=== PATIENT | female | born 2000 | race Caucasian/White ===

== ENCOUNTER 2020-02-07 21:07 | Emergency (ER) | payer OTHER ==
[~2020-02-07] VITALS: Ht 162.6 cm; Wt 99.8 kg
[~2020-02-07 21:07] MED LIST: AMOX500 PO; AZIT200SU PO; CODACE30 PO; ONDA4ODT MM; PROM25 PO; Permethrin60 GM TP; Prednisone20 MG PO; RXCODACET PO; Zofran4 MG PO
== END 2020-02-07 23:25 | disposition home or self-care (01) ==
LOC: ER 21:07
DX: S91.112A Laceration without foreign body of left great toe without damage to nail, initial encounter (principal); W26.8XXA Contact with other sharp object(s), not elsewhere classified, initial encounter
CPT/HCPCS: 12001; 73620; 99283-25

== ENCOUNTER 2021-04-25 20:10 | Emergency (ER) | payer OTHER ==
[~2021-04-25] VITALS: Ht 165.1 cm; Wt 97.5 kg
== END 2021-04-25 21:08 | disposition home or self-care (01) ==
LOC: ER 20:10
DX: S50.11XA Contusion of right forearm, initial encounter (principal); X58.XXXA Exposure to other specified factors, initial encounter; Y93.K9 Activity, other involving animal care
CPT/HCPCS: 73090; 99283-25; A9270

== ENCOUNTER 2024-06-05 22:52 | Emergency (ER) | payer OTHER ==
[~2024-06-05] VITALS: Ht 162.6 cm; Wt 96.2 kg
[2024-06-06 04:00] VITALS: BP 133/83
== END 2024-06-06 05:01 | disposition home or self-care (01) ==
LOC: ER 22:52
DX: S63.501A Unspecified sprain of right wrist, initial encounter (principal); W01.0XXA Fall on same level from slipping, tripping and stumbling without subsequent striking against object, initial encounter
CPT/HCPCS: 29125; 73090; 73110; 99283-25

== ENCOUNTER 2024-10-20 15:39 | Emergency (ER) | payer BC, OTHER ==
[~2024-10-20] VITALS: Ht 162.6 cm; Wt 113.4 kg
[2024-10-20] MEDS ORDERED: HYDROmorphone HCl/Pf 1MG SYR IV ONE (15:40)
[2024-10-20] MEDS ORDERED: Ketorolac Tromethamine 30mg Vial IV ONE (15:45)
[2024-10-20] MEDS ORDERED: Norco 5-325 Ta1 EACH PO (16:25)
[2024-10-20 16:33] VITALS: BP 110/90
[2024-10-20] MEDS ORDERED: CRUTCH2 XX (17:01)
== END 2024-10-20 17:07 | disposition home or self-care (01) ==
LOC: ER 15:39
DX: S82.831A Other fracture of upper and lower end of right fibula, initial encounter for closed fracture (principal); W18.30XA Fall on same level, unspecified, initial encounter
CPT/HCPCS: 29515; 73610; 96374-59; 96375-59; 99283-25; J1171; J1885

== ENCOUNTER 2024-10-29 12:11 | Day surgery (SDC) | payer BC, OTHER ==
[2024-10-29] VITALS (10 sets, daily range): BP systolic 100–153; BP diastolic 48–95
[~2024-10-29] VITALS: Ht 162.6 cm; Wt 129.2 kg
[~2024-10-29 12:11] MED LIST changes: +CRUTCH2 XX; +Norco 5-325 Ta1 EACH PO
[2024-10-29] MEDS ORDERED: Lactated Ringer's 1,000 ML IV SCH (13:15)
[2024-10-29] MEDS ORDERED: CeFAZolin Sodium 2,000 MG in NS 100 ML IV SCH (13:15)
[2024-10-29] MEDS ORDERED: CeFAZolin Sodium 3,000 MG in NS 100 ML IV SCH (13:25)
[2024-10-29] MEDS ORDERED: Midazolam HCL 1 MG/ML 5MLVIAL ONE (13:30)
[2024-10-29] MEDS ORDERED: FentaNYL Citrate 50 MCG/ML 2 ML Injection ONE ×3 (13:31→16:12)
[2024-10-29] MEDS ORDERED: propofoL 20 ML IV ONE ×2 (13:33→14:10)
[2024-10-29] MEDS ORDERED: CeFAZolin Sodium 3,000 MG VIAL ONE (13:33)
[2024-10-29] MEDS ORDERED: Bupivacaine 0.5% W/EPI 1:200000 SDV 30 ML Vial ONE (13:39)
--- NOTE | 2024-10-29 13:41 | NUR ---
PT TO UNIT VIA W/C WITH SPLINT ON LEG. ABLE TO STAND ON SCALE WITH MINIMAL ASSISTANCE. ABLE TO USE RESTROOM INDEPENDENTLY. Pre-Op teaching done. Pt verbalizes understanding. Patient States Post-Procedure ride home has been arranged WITH MOTHER. History, Chart, Medications and Allergies reviewed before start of procedure. MULTIPLE IV ATTEMPTS BY MULTIPLE STAFF MEMBERS INCLUDING ANESTHESIA PROVIDER. PT TOW. FAMILY BROUGHT TO SEE PT BEFORE TAKING BACK TO OPERATING ROOM.
[2024-10-29] MEDS ORDERED: Ondansetron HCl 2 MG / ML 2ML Vial ONE (14:29)
[2024-10-29] MEDS ORDERED: Dexamethasone Sod Phos 10 MG/ML 1ML VIAL ONE (14:29)
[2024-10-29] MEDS ORDERED: FentaNYL Citrate 50 MCG/ML 2 ML Injection IV PRN ×2 (14:40)
[2024-10-29] MEDS ORDERED: Ondansetron HCl 2 MG / ML 2ML Vial IV PRN (14:40)
[2024-10-29] MEDS ORDERED: HYDROmorphone HCl 0.5 MG/0.5 ML SYR IV PRN (14:40)
[2024-10-29] MEDS ORDERED: Labetalol HCL 5 MG/ML 4ML Injection (Single Dose) IV PRN (14:40)
[2024-10-29] MEDS ORDERED: Ketorolac Tromethamine 30mg Vial ONE (15:06)
[2024-10-29] MEDS ORDERED: Bupivacaine 0.5% HCl 5 MG/ML 30MLVIAL ONE (16:26)
[2024-10-29] MEDS ORDERED: Bupivacaine HCl 0.25% 30 ML Injection ONE (16:26)
[2024-10-29] MEDS ORDERED: HYDROmorphone HCl 0.5 MG/0.5 ML SYR ONE (16:53)
[2024-10-29] MEDS ORDERED: HYDROmorphone HCl 0.5 MG/0.5 ML SYR IV ONE (17:00)
[2024-10-29] MEDS ORDERED: OxyCODONE HCL 10 MG TABCR PO ONE (17:00)
--- NOTE | 2024-10-29 17:34 | NUR ---
LATE ENTRY FOR 1605 ANESTHESIA AT BEDSIDE TO PERFORM NERVE BLOCK AT 1540. PT PLACED ON HER LEFT SIDE WITH SUPPORT AND PILLOWS UNDER RIGHT LEG. PT TEARFUL AND REPORTING PAIN OF 8/10 IN RIGHT ANKLE. DESCRIBES PAIN "PRESSURE AND SHARP". VITAL SIGNS REMAIN STABLE THROUGHOUT. 50MCG FENTANYL IV FOR PAIN DURING BLOCK AT 1545 WITH ANESTHESIA APPROVAL. SEE ANESTHESIA BLOCK NOTE FOR BLOCK DETAILS. WHEN BLOCK WAS COMPLETED AT 1601 PT HELPED BACK TO SUPINE POSITION WITH HEAD OF BED ELEVATED. PILLOWS PLACED UNDER RIGHT LEG. PT REMAINS TEARFUL WITH PAIN RATING OF 8/10 IN HER RIGHT ANKLE. PT ABLE TO FEEL TOUCH ON TOES AND REPORTS NO NUMBNESS OR TINGLING. SHE IS ABLE TO WIGGLE HER TOES. DR JACOBO BENSON.
--- NOTE | 2024-10-29 17:50 | NUR ---
LATE ENTRY FOR 1635 WHEN TRANSFERRING VITAL SIGNS FROM [facility], THE MONITOR TRANSFERRED ALL VITALS EXCEPT BLOOD PRESSURES. VITAL SIGN TRENDS PRINTED MANUALLY AND PLACED IN PT'S CHART WITH PT STICKER TO BE SCANNED INTO MEDICAL RECORD.
--- NOTE | 2024-10-29 17:53 | NUR ---
PT REPORTS PAIN TOLERABLE AT 6/10 AND IS REQUESTING TO GO HOME. VITALS REMAIN STABLE. NO NAUSEA REPORTED. SPLINT AND DIANNA WRAP REMAIN CLEAN DRY AND INTACT. TOES REMAIN PINK WITH GOOD CAPILLARY REFILL. PT'S PERSONAL WHEELCHAIR RETURNED TO HER. ABLE TO TRANSFER WITH MINIMAL ASSISTANCE TO W/C. Discharge instructions reviewed with patient. Patient verbalizes understanding. Copy given to patient to take home. BOYFRIEND AND MOTHER PRESENT FOR INSTRUCTIONS. ALL DENY ANY FURTHER QUESTIONS AT THIS TIME. ICE PACK GIVEN TO PT TO TAKE HOME. PAIN CONTROL HANDOUT PROVIDED TO PT. PT TAKEN TO MOMS VEHICLE VIA W/C.
--- NOTE | 2024-10-29 18:01 | NUR ---
LATE ENTRY FOR 1709 DR METCALF CALLED AND NOTIFIED OF PT BEING TEARFUL WITH PAIN LEVEL OF 8/10 IN HER RIGHT ANKLE. VERBAL ORDERS GIVEN FOR ORAL AND IV PAIN MEDS. SEE EMAR FOR PAIN MEDS GIVEN. PT CONTINUES TO REPORT NO NAUSEA AT THIS TIME. PT ABLE TO TOLERATE WATER AND VANILLA PUDDING WELL.
== END 2024-10-29 23:00 | disposition home or self-care (01) ==
LOC: ORSCMMR 12:11 → ORD 13:30 → ORSCMMR 23:00
DX: S82.841A Displaced bimalleolar fracture of right lower leg, initial encounter for closed fracture (principal); E66.01 Morbid (severe) obesity due to excess calories; Z68.42 Body mass index [BMI] 45.0-49.9, adult
CPT/HCPCS: A9270; C1713; J0690; J1100; J1171; J1885; J2250; J2405; J2704; J3010; J7120

== ENCOUNTER 2024-12-14 09:07 | Day surgery (SDC) | payer BC, OTHER ==
[~2024-12-14] VITALS: Ht 162.6 cm; Wt 130.9 kg
[2024-12-14] VITALS (10 sets, daily range): BP systolic 101–131; BP diastolic 55–89
[~2024-12-14 09:07] MED LIST changes: +IBUP200 PO; +Lactated Ringer's 1,000 ML IV SCH; +SULFAMETHOXAZO1 EAC1 PO
[2024-12-14] MEDS ORDERED: CeFAZolin Sodium 3,000 MG in NS 100 ML IV SCH (09:40)
[2024-12-14] MEDS ORDERED: CeFAZolin Sodium 3,000 MG VIAL ONE (09:55)
--- NOTE | 2024-12-14 10:20 | NUR ---
Patient confirms NPO status and agrees with scheduled surgery. History, Chart, Medications and Allergies reviewed before start of procedure. Patient States Post-Procedure ride home has been arranged. Pre-Op teaching done. Pt verbalizes understanding. Pt presented to Day Surgery in personal wheelchair. Patient label placed on chair and stored in Endo 2. Lungs clear T/O to Auscultation.
[2024-12-14] MEDS ORDERED: propofoL 20 ML IV ONE (10:47)
[2024-12-14] MEDS ORDERED: FentaNYL Citrate 50 MCG/ML 2 ML Injection ONE (10:56)
[2024-12-14] MEDS ORDERED: HYDROmorphone HCl/Pf 1MG SYR ONE ×2 (11:01→11:47)
[2024-12-14] MEDS ORDERED: Ondansetron HCl 2 MG / ML 2ML Vial ONE (11:10)
[2024-12-14] MEDS ORDERED: Dexamethasone Sod Phos 10 MG/ML 1ML VIAL ONE (11:10)
[2024-12-14] MEDS ORDERED: Morphine Sulfate 4 MG/1 ML Injection IV PRN (11:40)
[2024-12-14] MEDS ORDERED: HYDROmorphone HCl/Pf 1MG SYR IV PRN (11:40)
[2024-12-14] MEDS ORDERED: FentaNYL Citrate 50 MCG/ML 2 ML Injection IV PRN (11:45)
[2024-12-14] MEDS ORDERED: Albuterol 2.5 MG/3 ML VIAL INH PRN (11:45)
[2024-12-14] MEDS ORDERED: Ondansetron HCl 2 MG / ML 2ML Vial IV PRN (11:45)
[2024-12-14] MEDS ORDERED: Ketorolac Tromethamine 30mg Vial IV PRN (11:50)
[2024-12-14] MEDS ORDERED: OxyCODONE HCL 5 MG TAB PO PRN (12:00)
--- NOTE | 2024-12-14 13:09 | NUR ---
DISCHARGE NOTE PT A&OX4, BREATHING RA, VSS. MEDICATED FOR PAIN PER MD ORDERS, PT STATES PAIN IS "MUCH BETTER." NO OTHER COMPLAINTS. R LEG ELEVATED C ICE PACK. PICCO DRESSING INTACT AND GREEN LIGHT IS ON. PT TOLERTING PO INTAKE. SISTER AT BEDSIDE, GLASSES ON PT. Discharge instructions reviewed with patient. Patient verbalizes understanding. Copy given to patient to take home. Dressing to procedure site clean, dry, intact with no visible drainage, swelling, erythema or bruising noted.PT ABLE TO WIGGLE AND FEEL TOES- BRISK CAP REFILL AND FOOT IS PWD. SWELLING TO R FOOT NOTED BUT REMAINS UNCHAGED DURING DSU STAY. Discharged via wheelchair to private car for ride home.
== END 2024-12-14 13:26 | disposition home or self-care (01) ==
LOC: ORD 09:07 → ORSCMMR 09:07 → ORD 09:45 → ORSCMMR 09:45 → ORD 13:26
PROVIDERS: Orthopaedic Surgery
PROC: 0QBJ0ZZ Excision of Right Fibula, Open Approach (ICD-10-PCS; principal; 2024-12-14 11:00)
DX: S82.841G Displaced bimalleolar fracture of right lower leg, subsequent encounter for closed fracture with delayed healing (principal); B95.4 Other streptococcus as the cause of diseases classified elsewhere; T81.31XA Disruption of external operation (surgical) wound, not elsewhere classified, initial encounter; E66.01 Morbid (severe) obesity due to excess calories; Z68.42 Body mass index [BMI] 45.0-49.9, adult
CPT/HCPCS: 87071; 87075; 87076; 87185; 87205; A9270; J0690; J1100; J1171; J1885; J2405; J2704; J3010; J7120

== ENCOUNTER 2025-01-30 06:04 | Day surgery (SDC) | payer BC, OTHER ==
[~2025-01-30] VITALS: Ht 162.6 cm; Wt 125.7 kg
[~2025-01-30 06:04] MED LIST changes: +Lactated Ringer's 1,000 ML IV ONE; -Lactated Ringer's 1,000 ML IV SCH
[2025-01-30] MEDS ORDERED: CeFAZolin Sodium 3,000 MG VIAL ONE (06:23)
[2025-01-30] MEDS ORDERED: Lactated Ringer's 1,000 ML IV ONE ×3 (07:00→09:50)
[2025-01-30] MEDS ORDERED: Bupivacaine 0.5% W/EPI 1:200000 SDV 30 ML Vial ONE (07:00)
[2025-01-30] MEDS ORDERED: ACET500 PO (07:01)
[2025-01-30] MEDS ORDERED: propofoL 20 ML IV ONE (07:16)
[2025-01-30] MEDS ORDERED: FentaNYL Citrate 50 MCG/ML 2 ML Injection ONE ×3 (07:16→09:17)
[2025-01-30] MEDS ORDERED: Midazolam HCl 1MG / ML 2ML Vial ONE (07:16)
[2025-01-30] MEDS ORDERED: Dexamethasone Sod Phos 10 MG/ML 1ML VIAL ONE (07:28)
[2025-01-30] MEDS ORDERED: Ondansetron HCl 2 MG / ML 2ML Vial ONE ×2 (07:28→08:43)
[2025-01-30] MEDS ORDERED: Ketorolac Tromethamine 30mg Vial ONE (07:29)
[2025-01-30] MEDS ORDERED: Rocuronium Bromide 10 MG/ML 5ML Injection IV ONE (07:31)
[2025-01-30] MEDS ORDERED: [UNRECOGNIZED DRUG - OTHER] INJ ONE (07:56)
[2025-01-30] MEDS ORDERED: Sugammadex Sodium 200 MG/2ML SDV (100 MG/ML) ONE (08:18)
[2025-01-30] MEDS ORDERED: Metoclopramide HCl 5MG / ML 2ML Vial ONE (09:02)
--- NOTE | 2025-01-30 09:11 | NUR ---
01/30/25 0911 Kee Orozco PT EXPERIENCING NAUSEA/VOMITING. MEDICATED WITH ZOFRAN 4 MG IV. PT WAS STILL EXPERIENCING NAUSEA/VOMITING AND MEDICATED WITH REGLAN 10 MG IV. WILL CONTINUE TO MONITOR.
[2025-01-30 09:31] VITALS: BP 112/58
== END 2025-01-30 09:56 | disposition home or self-care (01) ==
LOC: ORSCSDS 06:04
PROVIDERS: Orthopaedic Surgery
PROC: 0QP104Z Removal of Internal Fixation Device from Sacrum, Open Approach (ICD-10-PCS; principal; 2025-01-30 07:30)
PROC: 0JBQ0ZZ Excision of Right Foot Subcutaneous Tissue and Fascia, Open Approach (ICD-10-PCS; principal; 2025-01-30 07:30)
PROC: 0QBJ0ZZ Excision of Right Fibula, Open Approach (ICD-10-PCS; principal; 2025-01-30 07:30)
DX: T84.9XXA Unspecified complication of internal orthopedic prosthetic device, implant and graft, initial encounter (principal); S82.831D Other fracture of upper and lower end of right fibula, subsequent encounter for closed fracture with routine healing; E66.01 Morbid (severe) obesity due to excess calories; Z68.42 Body mass index [BMI] 45.0-49.9, adult
CPT/HCPCS: 87071; 87075; 87077; 87186; 87205; J0690; J1100; J1885; J2250; J2405; J2704; J2765; J3010; J7120

== ENCOUNTER 2025-05-03 01:38 | Day surgery (SDC) | payer BC, OTHER ==
[~2025-05-03 01:38] MED LIST changes: +ACET500 PO; -Lactated Ringer's 1,000 ML IV ONE
[2025-05-03] MEDS ORDERED: Lidocaine HCl 4% Cream 5 GM ONE (08:03)
== END 2025-05-03 23:00 | disposition home or self-care (01) ==
LOC: WOUND 01:38
DX: T81.31XA Disruption of external operation (surgical) wound, not elsewhere classified, initial encounter (principal)
CPT/HCPCS: A6213; A9270; G0463

== ENCOUNTER 2025-05-07 02:26 | Day surgery (SDC) | payer BC, OTHER ==
[2025-05-07] MEDS ORDERED: Lidocaine HCl 4% Cream 5 GM ONE (07:54)
== END 2025-05-07 23:59 | disposition home or self-care (01) ==
LOC: WOUND 02:26
DX: T81.31XD Disruption of external operation (surgical) wound, not elsewhere classified, subsequent encounter (principal); L97.812 Non-pressure chronic ulcer of other part of right lower leg with fat layer exposed
CPT/HCPCS: A6213; A9270; G0463

== ENCOUNTER 2025-05-21 02:13 | Day surgery (SDC) | payer BC, OTHER ==
[2025-05-21] MEDS ORDERED: Lidocaine HCl 4% Cream 5 GM ONE (07:52)
== END 2025-05-21 23:00 | disposition home or self-care (01) ==
LOC: WOUND 02:13
DX: T81.31XD Disruption of external operation (surgical) wound, not elsewhere classified, subsequent encounter (principal); L97.312 Non-pressure chronic ulcer of right ankle with fat layer exposed
CPT/HCPCS: A6213; A9270; G0463

== ENCOUNTER 2025-05-31 10:48 | Day surgery (SDC) | payer BC, OTHER ==
[~2025-05-31 10:48] MED LIST changes: +Lidocaine HCl 4% Cream 5 GM ONE
== END 2025-05-31 23:00 | disposition home or self-care (01) ==
LOC: WOUND 10:48
DX: T81.31XD Disruption of external operation (surgical) wound, not elsewhere classified, subsequent encounter (principal); L97.312 Non-pressure chronic ulcer of right ankle with fat layer exposed
CPT/HCPCS: A6213; A9270; G0463

== ENCOUNTER 2025-06-21 00:04 | Day surgery (SDC) | payer BC, OTHER ==
[~2025-06-21 00:04] MED LIST changes: -Lidocaine HCl 4% Cream 5 GM ONE
[2025-06-21] MEDS ORDERED: Lidocaine HCl 4% Cream 5 GM ONE (08:30)
== END 2025-06-21 23:00 | disposition home or self-care (01) ==
LOC: WOUND 00:04
DX: T81.31XD Disruption of external operation (surgical) wound, not elsewhere classified, subsequent encounter (principal); L97.312 Non-pressure chronic ulcer of right ankle with fat layer exposed
CPT/HCPCS: A6213; A9270

== ENCOUNTER 2025-06-27 02:32 | Day surgery (SDC) | payer BC, OTHER ==
[2025-06-27] MEDS ORDERED: Lidocaine HCl 4% Cream 5 GM ONE (08:19)
== END 2025-06-27 23:00 | disposition home or self-care (01) ==
LOC: WOUND 02:32
DX: T81.31XA Disruption of external operation (surgical) wound, not elsewhere classified, initial encounter (principal); L97.312 Non-pressure chronic ulcer of right ankle with fat layer exposed
CPT/HCPCS: A6213; A9270

== ENCOUNTER 2025-07-05 00:27 | Day surgery (SDC) | payer BC, OTHER ==
[2025-07-05] MEDS ORDERED: Lidocaine HCl 4% Cream 5 GM ONE (08:25)
== END 2025-07-05 23:00 | disposition home or self-care (01) ==
LOC: WOUND 00:27
DX: T81.31XD Disruption of external operation (surgical) wound, not elsewhere classified, subsequent encounter (principal); Z98.890 Other specified postprocedural states
CPT/HCPCS: A9270; G0463

== ENCOUNTER 2025-07-12 02:37 | Day surgery (SDC) | payer BC, OTHER | END 2025-07-12 23:00 | disposition home or self-care (01) | LOC: WOUND 02:37 | DX: T81.31XD Disruption of external operation (surgical) wound, not elsewhere classified, subsequent encounter (principal) | CPT/HCPCS: G0463 ==